=== PATIENT | female | born 1985 | race Hispanic/Latino ===

== ENCOUNTER 2017-11-15 12:27 | Outpatient (CLI) | payer MEDICAID ==
[2017-11-15 12:51] LABS: Hematocrit 39.5 % (30.3-42.9); Hemoglobin 13.3 gm/dl (10.1-14.3); Mean Corpuscular HGB Conc 34 % (30-34); Mean Corpuscular Hemoglobin 29 pg (28-32); Mean Corpuscular Volume 87 fl (79-97); Platelet Count 276 K/mm3 (140-440); Red Blood Count 4.55 M/mm3 (3.65-5.03)
[2017-11-15 13:13] LABS: Alanine Aminotransferase 10 units/L (7-56); Albumin 3.7 g/dL (3.9-5); BUN/Creatinine Ratio 10; Blood Urea Nitrogen 5 mg/dL (7-17); Calcium 9.2 mg/dL (8.4-10.2); Hemolysis Index 1
== END 2017-11-15 12:28 | disposition home or self-care (01) ==
LOC: LAB 12:27
PROVIDERS: ATTEND Specialist
DX: D35.2 Benign neoplasm of pituitary gland (principal)
CPT/HCPCS: 36415; 80053; 84146; 84443; 85027

== ENCOUNTER 2019-01-16 15:55 | Outpatient (CLI) | payer MEDICAID | END 2019-01-16 15:56 | disposition home or self-care (01) | LOC: LAB 15:55 | PROVIDERS: ATTEND Specialist | DX: D35.2 Benign neoplasm of pituitary gland (principal) | CPT/HCPCS: 36415 ==